=== PATIENT | female | born 1990 | race Caucasian/White ===

== ENCOUNTER → 2017-12-17 10:15 | Observation (INO) ==
[2017-12-17 08:40] LABS: Amphetamine Screen,Urine Negative ng/mL (Cutoff=1000); Barbiturate Screen,Urine Negative ng/mL (Cutoff=200); Benzodiazepines Screen,Urine Negative ng/mL (Cutoff=200); Cannabinoid Screen,Urine Negative ng/mL (Cutoff = 50); Cocaine Screen,Urine Negative ng/mL (Cutoff= 300); Opiate Screen,Urine Negative ng/mL (Cutoff=300); Phencyclidine Screen,Urine Negative ng/mL (Cutoff=25)
--- NOTE | 2017-12-17 10:00 | Discharge Summary ---
Date of Encounter: 12/17/17 Time of Encounter: 09:59 - Discharge Diagnosis (1) 38 weeks gestation of Priority: Primary Status: Acute Comments: admitted for observation (2) Non-reactive NST (non-stress test) Priority: Secondary Status: Acute Comments: FHR 130 bpm moderate variability +15x15 accels no decels noted. Irregular contractions Cat. 1 tracing (3) False labor Priority: Secondary Status: Acute Comments: discharge home follow up with Dr. Salazar as scheduled. - Discharge Medications Home Medications: Tablet 1 tab PO DAILY 12/17/17 [History] Allergies/Adverse Reactions: 3 Allergy/AdvReac Type Severity Reaction Status Date / Time No Known Allergies Allergy Verified 12/17/17 07:55 Data Procedures and tests throughout hospitalization: Laboratory Tests 12/17/17 07:46 Urine Opiates Screen Negative Ur Barbiturates Screen Negative Ur Phencyclidine Scrn Negative Ur Amphetamines Screen Negative U Benzodiazepines Scrn Negative Urine Cocaine Screen Negative U Marijuana (THC) Screen Negative Labs on day of discharge: Labs from last 24 hours 12/17/17 07:46 Urine Opiates Screen Negative Ur Barbiturates Screen Negative Ur Phencyclidine Scrn Negative Ur Amphetamines Screen Negative U Benzodiazepines Scrn Negative Urine Cocaine Screen Negative U Marijuana (THC) Screen Negative Date of admission: 12/17/17 07:37 Discharging clinician: Silva Thompson Anticipated date of discharge: 12/17/17 - Patient Status Disposition: Home, Self-Care Condition: Good Functional capacity at discharge: independent ambulation - Discharge Instructions Follow Up With: Kiley Salazar MD [Partnered Physician] - Additional Instructions: LABOR AND DELIVERY DISCHARGE INSTRUCTIONS Signs and Symptoms to be Reported to your Doctor Immediately: * Sudden gush, continuous or intermittent lead of fluid from vagina (note the time of gush and color of fluid) * Onset of bright red vaginal bleeding with or without pain (if you had a vaginal exam during this visit you may notice some dark red spotting. This is normal.) * Contractions that are 5 minutes apart (from the beginning of one contraction to the beginning of the next) and last 45-60 seonds; contractions that you can no longer walk, talk or laugh through. * A change in the baby's activity. This could be an increase or decrease in activity. * Severe headache which does not go away with tylenol. * Sudden swelling in the face, hands, arms and/or legs. * Upper abdominal pain - sometimes associated with heartburn or nausea and is not relieved by Maalox, Mylanta or Tums. * Kick Counts __ One hour after a meal, lay down on one side in a quiet place. Count the number of time the baby moves during an hour. 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 No cervical change was made. FHR 130 bpm with RNST. Time Attestation: Total time spent providing and/or coordinating discharge services: Time Spent: Less than 30 minutes Exam - Constitutional General appearance IM: A&O X 3, answers questions appropriately - Other Additional findings: assessed by RN. SVE Closed no change after ambulation and observation. - VTE Reasons for not Prescribing Prophylaxis: Treatment not Indicated - Low risk for VTE
== END | disposition home or self-care (01) ==
LOC: 1NENULAB
PROVIDERS: ADMIT Student in an Organized Health Care Education/Training Program; ATTEND Student in an Organized Health Care Education/Training Program

== ENCOUNTER → 2017-12-17 23:11 | Observation (INO) ==
--- NOTE | 2017-12-18 06:58 | Discharge Summary ---
Date of Encounter: 12/17/17 Time of Encounter: 23:01 - Discharge Diagnosis (1) NST (non-stress test) reactive on surveillance Priority: Secondary Status: Acute Comments: 135 bpm moderate variability +15x15 accels no decels noted. Contractions irregular. cat. 1 tracing (2) 38 weeks gestation of Priority: Primary Status: Acute Comments: admitted for labor evaluation (3) False labor Priority: Secondary Status: Acute Comments: no cervical change after observation - Discharge Medications Home Medications: Insulin ASPART [Novolog] 8 ml SQ HS 12/17/17 [History] Tablet 1 tab PO DAILY 12/17/17 [History] Allergies/Adverse Reactions: 3 Allergy/AdvReac Type Severity Reaction Status Date / Time No Known Allergies Allergy Verified 12/17/17 07:55 Date of admission: 12/17/17 21:34 Primary care physician: PCP NONE Discharging clinician: Silva Thompson Anticipated date of discharge: 12/18/17 - Patient Status Disposition: Home, Self-Care Condition: Good - Discharge Instructions Follow Up With: NONE,PCP [Primary Care Provider] - Kiley Salazar MD [Partnered Physician] - Additional Instructions: LABOR AND DELIVERY DISCHARGE INSTRUCTIONS Signs and Symptoms to be Reported to your Doctor Immediately: * Sudden gush, continuous or intermittent lead of fluid from vagina (note the time of gush and color of fluid) * Onset of bright red vaginal bleeding with or without pain (if you had a vaginal exam during this visit you may notice some dark red spotting. This is normal.) * Contractions that are 5 minutes apart (from the beginning of one contraction to the beginning of the next) and last 45-60 seonds; contractions that you can no longer walk, talk or laugh through. * A change in the baby's activity. This could be an increase or decrease in activity. * Severe headache which does not go away with tylenol. * Sudden swelling in the face, hands, arms and/or legs. * Upper abdominal pain - sometimes associated with heartburn or nausea and is not relieved by Maalox, Mylanta or Tums. * Kick Counts __ One hour after a meal, lay down on one side in a quiet place. Count the number of time the baby moves during an hour. 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 Patient was seen in labor and delivery earlier today and had made no cervical change. Patient reports contractions continued. Patient was 1cm dilated and made no cervical change throughout observation. Time Attestation: Total time spent providing and/or coordinating discharge services: Time Spent: Less than 30 minutes Exam - Constitutional General appearance IM: A&O X 3, answers questions appropriately - Neurological Exam Neurological exam: alert, oriented X3 - VTE Reasons for not Prescribing Prophylaxis: Treatment not Indicated - Low risk for VTE
== END | disposition home or self-care (01) ==
LOC: 1NENULAB
PROVIDERS: ADMIT Advanced Practice Midwife; ATTEND Advanced Practice Midwife

== ENCOUNTER 2017-12-18 11:59 | Inpatient (IN) ==
[2017-12-18] MEDS ORDERED: Naloxone 0.4 MG/ML INJ IVP PRN (12:23)
[2017-12-18] MEDS ORDERED: miSOPROStol 25 MCG TABLET PO PRN (12:23)
[2017-12-18] MEDS ORDERED: Metoclopramide 10 MG/2 ML VIAL IVP PRN (12:23)
[2017-12-18] MEDS ORDERED: Ondansetron 4 MG/2 ML VIAL IVP PRN (12:23)
[2017-12-18] MEDS ORDERED: Famotidine 20 MG/2 ML VIAL IVP PRN (12:23)
[2017-12-18] MEDS ORDERED: Ringers Solution, Lactated 1,000 ML IVC SCH (12:30)
[2017-12-18] MEDS ORDERED: D5% in Lactated Ringers 1,000 ML IVC SCH (12:45)
--- NOTE | 2017-12-18 12:47 | OB/GYN History & Physical ---
Date of Encounter: 12/18/17 Time of Encounter: 12:42 Assessment and Plan (1) 39 weeks gestation of Current visit: Yes Status: Acute Admit for augmentation of labor. Consider cytotec with mai balloon vs pitocin Patient may have nubain and/or epidural upon request GBS negative Anticipate vaginal delivery POC per consult with Dr Mohr. History of Present Illness Chief complaint: Contractions HPI: Ms. Huerta is a 27 year old at 39 weeks 0 days that presents to the office with c/o contractions every five minutes and severe pain. She states positive movement. She denies headache, vision changes, and epigastric pain. She is a A2 gestational diabetic on NPH. She denies leaking of fluid, and vaginal bleeding. Labs: Blood type O+ / negative GBS negative Hep B negative HIV negative Rubella positive Varicella positive Past Med Surg Social Fam HX - Past Medical History Medical history: no medical history Psychiatric history: no psych history - Social History Smoking Status: Never smoker Smokeless Tobacco Status: No Alcohol use: none Drug use: none - Family History Daughter Living Status: Still Living Hx Family Cardiac Disorders: Yes (HTN) Hx Family Respiratory Disorders: Yes (Asthma) Mother Adopted: No Living Status: Still Living Hx Family Cardiac Disorders: No Hx Family Respiratory Disorders: No Hx Family Cancer: No Hx Family GI Disorders: No Hx Family Genitourinary Disorders: No Hx Family Endocrine Disorder: No Hx Family Musculoskeletal Disorders: No Hx Family Neuromuscular Disorders: No Hx Family Neurologic Disorders: No Hx Family HEENT Disorders: No Hx Family Autoimmune Disorders: No Hx Family Reproductive Disorders: No Hx Family Psychosocial Disorders: No Hx Family Medical Disorders: No Obstetrical History - Pregnancies : 1 Para: 0 Term: 0 : 0 Ab's: 0 Livin Medications and Allergies Insulin ASPART [Novolog] 8 ml SQ HS 12/17/17 [History] Tablet 1 tab PO DAILY 12/17/17 [History] Ferrous Sulfate 12/18/17 [History] metFORMIN 12/18/17 [History] 3 Allergy/AdvReac Type Severity Reaction Status Date / Time No Known Allergies Allergy Verified 12/17/17 07:55 Review of System OB All systems PM: reviewed and no additional remarkable complaints except as stated Results All other labs normal. - VTE Reasons for not Prescribing Prophylaxis: Treatment not Indicated - Low risk for VTE
[2017-12-18] MEDS ORDERED: Oxytocin 20 units/ LR 1000 mL 20 UNIT/1,000 ML BAG IVC SCH (13:00)
[2017-12-18] MEDS: *HR* Nalbuphine 10 MG/ML AMPUL IVP PRN ×2 (13:22→15:27)
[2017-12-18 13:35] LABS: Basophils % 0.3 %; Eosinophils % 0.1 %; Hematocrit 40.9 % (35.3-44.9); Hemoglobin 13.6 g/dL (11.5-15.4); Immature Granulocytes % 0.6 % (0-4); Lymphocytes # 1.3 K/mcL (0.6-4.6); Lymphocytes % 11.6 %; Mean Corpuscular HGB Conc 33.3 g/dL (31.6-35.5); Mean Corpuscular Hemoglobin 27.4 pg (28.0-33.3); Mean Corpuscular Volume 82.5 fL (83.0-100.0); Monocytes # 0.7 K/mcL (0.0-1.3); Monocytes % 6.4 %; Neutrophils # 9.3 K/mcL (1.6-8.9); Platelet Count 230 K/mcL (140-400); Red Blood Count 4.96 M/mcL (3.82-4.97); Red Cell Distribution Width 14.1 % (11.5-14.5)
[2017-12-18] MEDS ORDERED: Bupivacaine-MPF 0.25% 10 ML VIAL ONE (15:54)
[2017-12-18] MEDS ORDERED: Epidural Premix (fent/bupiv) 110 ML EP ONE ×2 (15:54→23:40)
[2017-12-18] MEDS ORDERED: *HR* FentaNYL (PF) 100 MCG/2 ML VIAL ONE (15:54)
[2017-12-18] MEDS ORDERED: EPHEDrine 50 MG/ML VIAL IVP PRN (16:24)
[2017-12-18] MEDS ORDERED: Bupivacaine-MPF 0.25% 10 ML VIAL EP ONE (16:24)
[2017-12-18] MEDS ORDERED: *HR* FentaNYL (PF) 100 MCG/2 ML VIAL EP ONE (16:24)
--- NOTE | 2017-12-18 16:27 | Anesthesia Evaluation PreOp ---
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 Other Medical History: Diabetes Type II (insulin dependent gestational diabetes) Anesthesia History: No Prior Anesthetic Complications, Past Anesthesia (tonsils) : Yes (, 39 weeks) Alcohol Use: none Drug use: none Medications and Allergies Insulin ASPART [Novolog] 8 ml SQ HS 12/17/17 [History] Tablet 1 tab PO DAILY 12/17/17 [History] Ferrous Sulfate 12/18/17 [History] metFORMIN 12/18/17 [History] 3 Allergy/AdvReac Type Severity Reaction Status Date / Time No Known Allergies Allergy Verified 12/17/17 07:55 - Meds/Allergy Pre-op Review Medications Reviewed: Yes Allergies Reviewed: Yes Beta Blockers on Current Med List: No Anesthesia Results - Labs 12/18/17 12:26 12/18/17 13:10 Anesthesia Exam O2 Sat Height 1.68 m Weight 89.9 kg Height: 66 Weight: 89 - HEENT Pupil (Motor): Pupils equal Mallampati: II Teeth: Normal Oral Opening: Greater than 3 - SHINGLE SHEARING MACHINE OPERATOR LOC: Oriented SHINGLE SHEARING MACHINE OPERATOR Motor: Normal RUE, Normal LUE, Normal RLE, Normal LLE, Normal Face SHINGLE SHEARING MACHINE OPERATOR Sensory: Normal: RUE, LUE, RLE, LLE, Face - Cardiac Rhythm: Regular Murmur: None JVD: No Carotid Bruit: No - Pulmonary Breath Sounds: bilateral Clear Respiratory Effort: Symmetrical Anesthesia Assess/Plan ASA Score: 3 Modified [place] Scale for Level of Consciousness: Cooperative, oriented, and tranquil Anesthetic Plan: Regional
--- NOTE | 2017-12-18 16:29 | Anesthesia Procedures ---
Date of Encounter: 12/18/17 Time of Encounter: 16:28 Procedures: Anesthesia - Epidural/Spinal Patient ID/Chart reviewed: Yes Patient examined: Yes OB Eval: Gestational age: 39 OB Eval: : 1 OB Eval: Contractions: Non-stressed pattern Consent Obtained: Yes Supplemental Oxygen: None/Room Air Site Prep: Aseptic Technique, 0.5% Chlorhexidine/Alcohol Patient position: upright Local Anesthetic: Lidocaine 1% Amount of Local Anesthetic used: 2 Touhy Needle Gauge: 18 Touhy Needle Depth (cm): 5 Catheter Depth at Skin (cm): 11 Test Dose (1.5% Lido + Epi): Volume given (mls): 3 Test Dose Result: Negative Loading Dose: 0.25% Marcaine (mls): 6 Loading Dose: Fentanyl (mcg): 100 Loading Dose Administered: Thru Touhy Needle Infusion Med: 0.125% Bupivacaine w/ 2 mcg/ml Fentanyl Catheter Secured in Place: Tegaderm Interspace Used: L3-L4 Loss of Resistance (SARAI): Yes Blood: No CSF: No Paresthesia: No
[2017-12-18] MEDS ORDERED: Epidural Premix (fent/bupiv) 110 ML EP SCH (16:30)
[2017-12-18] MEDS ORDERED: *HR* Ropivacaine/PF 0.2% 20 ML VIAL ONE (23:23)
--- NOTE | 2017-12-18 23:59 | OB Labor Progress Note ---
Date of Encounter: 12/18/17 Time of Encounter: 23:57 Labor Progress Note - Subjective Subjective: Patient sitting up in bed with family around her. She c/o severe vaginal pressure and urge to push - Vital Signs Vital Signs: VSS - Cervix Cervix: 9/100/+1 Cervix felt on right scalp, anterior and posterior. No cervix felt on left scalp - Heart Tones Heart Tones: 155 category I tracing - Bieber Bieber: Contractions every 1-3 minutes - Interventions Interventions: attempted to reduce cervix; cervix is tight and not able to reduce. Encouraged frequent position change with the peanut ball - Plan Plan: Continue routine labor management GBS negative Titrate pitocin Frequent position changes Encouraged laboring down Anticipate vaginal delivery POC per consult with Dr Mohr
--- NOTE | 2017-12-19 06:59 | OB/GYN Procedure Note ---
Delivery - Delivery Date: 12/19/17 Provider: Tani Mohr Intrapartum events: prolonged 2nd stage>2.5hr Delivery induction: mai Delivery augmentation: rupture of membranes, pitocin Delivery monitor: external FHT, external uterine Anesthesia: local, epidural Estimated Blood Loss: 100 - (s) Infant A Delivery Date: 12/19/17 Infant Delivery Time: 06:27 Presentation: vertex Position: SADIA Route of delivery: vacuum extraction Gender: Female Viability: Viable Pounds: 8 Ounces: 4 Weight Gram: 3740 kg at 1 minute: 8 at 5 mins: 9 Shoulder Dystocia: encountered Shoulder Dystocia Maneuvers: Alan maneuver, Willoughby Screw maneuver Shoulder dystocia time elapsed: 10sec Specimens collected: cord blood Placenta: spontaneous Cord: 3 umbilical vessels - Repair Episiotomy: midline (with thrid degree extension) - Complications Delivery complications: none Delivery comments: Patient is a 27-year-old 1 para 0 39-0/7 weeks who was sent from the office secondary to contractions every 5 minutes. Patient had been seen on labor and delivery the day before twice for these contractions but she was not making any cervical change and was not 39 weeks and was sent home she was seen in the office they felt it was time for her to be delivered she is a gestational diabetic A2 and with the contractions her physician wanted her delivered. She was sent to labor and delivery where Mai catheter was placed followed by Pitocin patient was progressing appropriately she was artificially ruptured clear fluid did receive an epidural patient progressed appropriately to complete the patient had ineffective pushing. Patient was allowed to labor down with intermittent pushing with minimal change in position patient started pushing again for the fourth time was being baby down and the heart tones were in the 180s to 200 and had lost its variability I was asked to come and assess the patient for possible vacuum delivery. Patient was noted to be at a + 2 station with It noted. Baby already had some excoriation going on the scalp try to set this time would have the patient keep pushing and a midline episiotomy was cut. This did bring the head to the outlet where it was decided this time a mighty Vac vacuum would be applied. The vacuum was applied was pumped up to approximately 500 mmHg then with 1 pull lasting approximately 40 seconds we delivered a viable female fetus in right occiput anterior presentation. We did have a mild dystocia for approximately 10 seconds Alan and Willoughby corkscrew was used to deliver the posterior shoulder followed by the anterior shoulder. We then delivered the completely infant was then placed on the mother's with the baby was bulb suctioned and cord was cut and cut. Infant weight was 8 lbs. 4 oz. Apgars were 8 at 1 minute 9 at 5 minutes. Cord blood was then collected, placenta was then delivered spontaneously with a three-vessel cord. Senior Research Fellow was Dr. Mohr. Patient did have a midline episiotomy which had extended to a third- degree. Rectal exam was performed and the patient rectal mucosa and tone was intact. The episiotomy was then closed in the usual fashion bringing the rectus muscles together with a 2-0 Vicryl bulbocavernosus muscle together with a 3-0 Vicryl and the remaining episiotomy was closed using a 3-0 Monocryl in a usual fashion. All needles lap sponge counts were correct 3 she will be observed 2 hours before being taken to the hospital. - Disposition Mom disposition: stable in LDR [place] disposition: stable in LDR
[2017-12-19] MEDS ORDERED: Oxytocin 20 units/ LR 1000 mL 20 UNIT/1,000 ML BAG IVC ONE (08:14)
[2017-12-19] MEDS ORDERED: *HR* HYDROcodone/Acet 5/325 mg TABLET PO PRN (08:14)
[2017-12-19] MEDS ORDERED: Benzocaine/Menthol 56 GM AEROSOL SPRAY TP PRN (08:14)
[2017-12-19] MEDS ORDERED: *HR* HYDROcodone/Acet 10/325 mg TABLET PO PRN (08:14)
[2017-12-19] MEDS ORDERED: Measles/Mumps/Rubella Vacc 0.5 ML VIAL SQ PRN (08:14)
[2017-12-19] MEDS ORDERED: Acetaminophen 325 MG TABLET PO PRN (08:14)
[2017-12-19] MEDS ORDERED: Oxytocin 20 units/ LR 1000 mL 20 UNIT/1,000 ML BAG IVC SCH (08:14)
[2017-12-19] MEDS ORDERED: Sennosides 8.6 MG TABLET PO PRN (08:14)
[2017-12-19] MEDS: Ibuprofen 600 MG TABLET PO PRN ×2 (08:32→20:05)
[2017-12-19] MEDS: Prenatal Vit/FA 1 EACH TABLET PO SCH (09:34)
[2017-12-20] MEDS: Ibuprofen 600 MG TABLET PO PRN (07:38)
[2017-12-20] MEDS: Prenatal Vit/FA 1 EACH TABLET PO SCH (07:38)
[2017-12-20 07:48] LABS: Basophils # 0.1 K/mcL (0.0-0.2); Basophils % 0.3 %; Eosinophils # 0.2 K/mcL (0.0-0.6); Eosinophils % 1.2 %; Hematocrit 32.2 % (35.3-44.9); Immature Granulocytes % 0.7 % (0-4); Lymphocytes # 1.4 K/mcL (0.6-4.6); Lymphocytes % 9.4 %; Mean Corpuscular HGB Conc 33.5 g/dL (31.6-35.5); Mean Corpuscular Hemoglobin 27.9 pg (28.0-33.3); Mean Corpuscular Volume 83.2 fL (83.0-100.0); Mean Platelet Volume 10.7 fL (9.4-12.4); Monocytes % 6.8 %; Neutrophils # 12.1 K/mcL (1.6-8.9); Platelet Count 177 K/mcL (140-400); Red Blood Count 3.87 M/mcL (3.82-4.97); Red Cell Distribution Width 14.5 % (11.5-14.5); Segmented Neutrophils % 81.6 %
[2017-12-20 07:54] LABS: Hemoglobin 10.8 g/dL (11.5-15.4)
[2017-12-20 08:58] VITALS: BP 112/76
--- NOTE | 2017-12-20 09:06 | Discharge Summary ---
Date of Encounter: 12/20/17 Time of Encounter: 09:04 - Discharge Diagnosis (1) Vaginal delivery Priority: Primary Status: Acute Comments: Feeling well Out of bed without dizziness Tolerating regular diet Voiding independently Passing flatus, but no BM yet Lochia light Bottlefeeding Pain well controlled with by mouth pain meds Discharge home today (2) Third degree laceration of perineum during delivery, Priority: Secondary Status: Acute Comments: Continue by mouth pain meds (3) anemia Priority: Secondary Status: Acute Comments: Continue iron once daily - Discharge Medications Prescriptions: Ibuprofen [Motrin] 600 mg PO Q6HR PRN #60 tablet PRN Reason: Cramping Docusate [Colace] 100 mg PO BID #120 capsule Ferrous Sulfate 325 mg PO DAILY #30 tablet Home Medications: Tablet 1 tab PO DAILY 12/17/17 [History] Ferrous Sulfate 12/18/17 [History] Acetaminophen [Tylenol] 650 mg PO Q6HR PRN tablet 12/20/17 [Rx] Benzocaine/Menthol [place] [Dermoplast [place]] 1 appl TP QID PRN aerosol 12/20/17 [Rx] Docusate [Colace] 100 mg PO BID #120 capsule 12/20/17 [Rx] Ferrous Sulfate 325 mg PO DAILY #30 tablet 12/20/17 [Rx] Hydrocortisone/Pramoxine [Epifoam] 1 appl TP TID bottle 12/20/17 [Rx] Ibuprofen [Motrin] 600 mg PO Q6HR PRN #60 tablet 12/20/17 [Rx] Allergies/Adverse Reactions: 3 Allergy/AdvReac Type Severity Reaction Status Date / Time No Known Allergies Allergy Verified 12/17/17 07:55 Data Procedures and tests throughout hospitalization: Laboratory Tests 12/18/17 12/18/17 12/18/17 12:26 13:10 14:34 WBC 11.5 H RBC 4.96 Hgb 13.6 Hct 40.9 MCV 82.5 L MCH 27.4 L MCHC 33.3 RDW 14.1 Plt Count 230 MPV 11.0 Immature Gran % 0.6 Seg Neutrophils % 81.0 Lymphocytes % 11.6 Monocytes % 6.4 Eosinophils % 0.1 Basophils % 0.3 Neutrophils # 9.3 H Lymphocytes # 1.3 Monocytes # 0.7 Eosinophils # 0.0 Basophils # 0.0 Glucose 102 POC Glucose 107 H 12/18/17 12/18/17 12/19/17 18:52 20:52 00:01 WBC RBC Hgb Hct MCV MCH MCHC RDW Plt Count MPV Immature Gran % Seg Neutrophils % Lymphocytes % Monocytes % Eosinophils % Basophils % Neutrophils # Lymphocytes # Monocytes # Eosinophils # Basophils # Glucose POC Glucose 106 H 94 117 H 12/19/17 12/19/17 12/19/17 02:07 03:08 11:25 WBC RBC Hgb Hct MCV MCH MCHC RDW Plt Count MPV Immature Gran % Seg Neutrophils % Lymphocytes % Monocytes % Eosinophils % Basophils % Neutrophils # Lymphocytes # Monocytes # Eosinophils # Basophils # Glucose POC Glucose 100 H 111 H 110 H 12/19/17 12/20/17 15:34 07:27 WBC 14.9 H RBC 3.87 Hgb 10.8 L D Hct 32.2 L MCV 83.2 MCH 27.9 L MCHC 33.5 RDW 14.5 Plt Count 177 MPV 10.7 Immature Gran % 0.7 Seg Neutrophils % 81.6 Lymphocytes % 9.4 Monocytes % 6.8 Eosinophils % 1.2 Basophils % 0.3 Neutrophils # 12.1 H Lymphocytes # 1.4 Monocytes # 1.0 Eosinophils # 0.2 Basophils # 0.1 Glucose POC Glucose 152 H Labs on day of discharge: Labs from last 24 hours 12/20/17 12/19/17 12/19/17 07:27 15:34 11:25 WBC 14.9 H RBC 3.87 Hgb 10.8 L D Hct 32.2 L MCV 83.2 MCH 27.9 L MCHC 33.5 RDW 14.5 Plt Count 177 MPV 10.7 Immature Gran % 0.7 Seg Neutrophils % 81.6 Lymphocytes % 9.4 Monocytes % 6.8 Eosinophils % 1.2 Basophils % 0.3 Neutrophils # 12.1 H Lymphocytes # 1.4 Monocytes # 1.0 Eosinophils # 0.2 Basophils # 0.1 POC Glucose 152 H 110 H 12/19/17 12/19/17 12/19/17 03:08 02:07 00:01 WBC RBC Hgb Hct MCV MCH MCHC RDW Plt Count MPV Immature Gran % Seg Neutrophils % Lymphocytes % Monocytes % Eosinophils % Basophils % Neutrophils # Lymphocytes # Monocytes # Eosinophils # Basophils # POC Glucose 111 H 100 H 117 H 12/18/17 12/18/17 12/18/17 20:52 18:52 14:34 WBC RBC Hgb Hct MCV MCH MCHC RDW Plt Count MPV Immature Gran % Seg Neutrophils % Lymphocytes % Monocytes % Eosinophils % Basophils % Neutrophils # Lymphocytes # Monocytes # Eosinophils # Basophils # POC Glucose 94 106 H 107 H Date of admission: 12/18/17 11:59 Primary care physician: PCP NONE Consults: 12/19/17 08:14 Consult to Ward Service Supervisor [CONS] Routine Comment: Vaginal delivery, consult needed Discharging clinician: Abiola Amador Anticipated date of discharge: 12/20/17 - Patient Status Disposition: Home, Self-Care Condition: Good Functional capacity at discharge: independent ambulation Overall status at discharge: patient is progressing back to baseline - Discharge Instructions Follow Up With: NONE,PCP [Primary Care Provider] - Kiley Salazar MD [Partnered Physician] - - Diet and Activity Activity: increase activity as tolerated Diet: regular diet Hospital Course Reason for admission: active labor, IUP at term Delivery: Episiotomy: midline (with thrid degree extension) Laceration: 3rd degree Other procedures: none complications: none Discharge diagnosis: IUP at term delivered baby: female Time Attestation: Total time spent providing and/or coordinating discharge services: Time Spent: Less than 30 minutes Exam - Constitutional Vitals: Temp Pulse Resp BP Pulse Ox 97.8 F 125 14 112/76 97 12/20/17 07:40 12/20/17 07:40 12/20/17 07:40 12/20/17 07:40 12/20/17 07:40 General appearance IM: A&O X 3 - Respiratory Respiratory exam: Present: CTAB - Cardiovascular Cardiovascular exam IM: Present: RRR, +S1, +S2 - GI/Abdominal GI/Abdominal exam IM: normal bowel sounds, no peritoneal signs - Rectal Rectal exam: laceration - External exam: lacerations Uterine Tone: Firm Uterus Position: At Umbilicus, Midline - Extremities Exam Extremities exam IM: Present: normal inspection, radial pulses palpable and symmetrical - Neurological Exam Neurological exam: alert, oriented X3 - Psychiatric Additional comments: She is feeling mentally well today. She denies any history of anxiety or depression. Signs and symptoms of depression discussed and patient and partner verbalized when to call for help.
== END 2017-12-20 14:01 | disposition home or self-care (01) | DRG 774 ==
LOC: 1NENULAB 11:59 → 1NENUOBS 12-19 09:31
PROVIDERS: ADMIT Obstetrics & Gynecology; ATTEND Obstetrics & Gynecology